=== PATIENT | female | born 1945 | race Caucasian/White ===

== ENCOUNTER 2022-07-07 12:10 | Inpatient (IN) | payer OTHER ==
[~2022-07-07] VITALS: Ht 162.6 cm; Wt 54.4 kg
[2022-07-07 12:45] LABS: MEAN CORPUSCULAR HEMOGLOBIN 23.8 uug (24.7-32.8); MEAN CORPUSCULAR VOLUME 74.7 fL (75.5-95.3); PLATELET COUNT (AUTO) 368 K/uL (179-408)
[2022-07-07 12:46] LABS: ABG BASE EXCESS -0.1 mmol/L; ABG HCO3 22.7 mmol/L; ABG PCO2 31.6 mmHg (35.0-45.0); ABG PH 7.474 (7.350-7.450); ABG PO2 48.2 mmHg (75.0-100.0); ABG SITE RIGHT RADIAL; ABG TOTAL HEMOGLOBIN 13.9 G/dL (12.0-16.0); COHb 0.5 % (0.5-1.5); MetHb 0.2 % (0.0-1.5); O2Hb 85.6 % (94.0-97.0)
[2022-07-07 12:52] LABS: CARBON DIOXIDE 29 mmol/L (21-32); CHLORIDE 101 mmol/L (98-107); CREATININE 0.9 mg/dL (0.6-1.3); GLUCOSE 161 mg/dL (74-106); POTASSIUM 4.1 mmol/L (3.5-5.1); UREA NITROGEN, BLOOD 22 mg/dL (7-18)
--- NOTE | 2022-07-07 13:34 | NUR ---
MD AT BEDSIDE FOR EVALUATION. ABGS DONE BY RT PER MD ORDER, MAINTAINED AT O2 MASK 8-10LPM.
[2022-07-07] MEDS ORDERED: ALBUTEROL SULFATE 2.5 MG/3 ML NEBU NEB ONE (13:45)
[2022-07-07] MEDS ORDERED: ALBUTEROL SULFATE 2.5 MG/3 ML NEBU ONE (13:46)
[2022-07-07] MEDS ORDERED: ALBU1.257 NEB (13:50)
[2022-07-07] MEDS ORDERED: ESCI10TA PO (13:50)
[2022-07-07] MEDS ORDERED: AMLO2.5T4 PO (13:50)
[2022-07-07] MEDS ORDERED: OSIM80TA PO (13:50)
[2022-07-07] MEDS ORDERED: ACET100V4 NEB (13:50)
[2022-07-07] MEDS ORDERED: IPRA0.2S48 NEB (13:50)
[2022-07-07] MEDS ORDERED: PROMETHAZINE-CODEINE PO (13:50)
[2022-07-07] MEDS ORDERED: PRED20TA PO (13:50)
[2022-07-07] MEDS ORDERED: FLUT16SP BNOSTRILS (13:50)
[2022-07-07] MEDS ORDERED: LEVO75TA7 PO (13:50)
[2022-07-07] MEDS ORDERED: APIX5TAB4 PO (13:50)
[2022-07-07] MEDS ORDERED: PANT40TA49 PO (13:50)
[2022-07-07] MEDS ORDERED: CEFEPIME HCL 2 G in IV DEXTROSE 5% 100 ML IV ONE (14:15)
[2022-07-07] MEDS ORDERED: IV NORMAL SALINE 500 ML BAG IV ONE (14:15)
--- NOTE | 2022-07-07 16:24 | NUR ---
Patient to go to room 314.
[2022-07-07] MEDS ORDERED: FAMO40TA7 PO (18:05)
[2022-07-07] MEDS ORDERED: PROMETHAZINE CODEINE PO SCH (19:00)
[2022-07-07] MEDS ORDERED: ACETAMINOPHEN 325 MG TABLET PO PRN (19:15)
[2022-07-07] MEDS ORDERED: MORPHINE SULFATE 2 MG/1 ML DISP.SYRIN IV PRN (19:15)
[2022-07-07] MEDS ORDERED: ONDANSETRON 4 MG/2 ML VIAL IV PRN (19:15)
--- NOTE | 2022-07-07 19:59 | NUR ---
Report given to DAVID Colvin
--- NOTE | 2022-07-07 20:25 | NUR ---
Admitted this 77 y/o female from ER via gurney, awake alert and oriented x 4. On O2 @ 5L/min via nc, SOB on exertion, HOB elevated to facilitate breathing. Left AC IV intact and patent. Denies chest pain. Sinus tachy on tele with HR of 101bpm. Routine admission care done, plan of care initiated. Needs assessed and attended to. Call light within easy reach.
[2022-07-07] MEDS ORDERED: GUAIFENESIN/CODEINE 5 ML LIQUID UDC PO PRN ×2 (20:30→21:00)
[2022-07-07 21:30] VITALS: BP 106/72
[2022-07-07] MEDS: AZITHROMYCIN IV 500 MG in IV DEXTROSE 5% 250 ML IV SCH (21:39)
[2022-07-07] MEDS: DOCUSATE SODIUM 100 MG CAPSULE PO SCH (21:40)
[2022-07-07] MEDS ORDERED: CEFTRIAXONE 1 G in IV DEXTROSE 5% 50 ML IV SCH (22:00)
[2022-07-07 22:43] LABS: *BILIRUBIN,URIN NEGATIVE (NEGATIVE); *BLOOD, URINE 1+ (NEGATIVE); *CLARITY,URINE SLIGHTLY CLOUDY (CLEAR); *COLOR,URINE YELLOW (YELLOW); *KETONES,URINE 1+ (NEGATIVE); *UROBILINOGEN,URINE 0.2 E.U./dl (NORMAL); LEUKOCYTE ESTERASE ,URINE 3+ (NEGATIVE); NITRITE, URINE POSITIVE (NEGATIVE); UGLUCOSE NEGATIVE (NEGATIVE)
[2022-07-07 23:19] LABS: BACTERIA,URINE MODERATE /HPF (NONE SEEN); SQUAMOUS EPITHELIAL CELL,UR FEW /HPF (NONE SEEN)
[2022-07-07 23:20] LABS: WBC,URINE TNTC /HPF (0-3)
[2022-07-08 00:39] VITALS: BP 100/71
[2022-07-08 04:52] VITALS: BP 93/62
[2022-07-08] MEDS: LEVOTHYROXINE SODIUM 75 MCG TABLET PO SCH (06:10)
[2022-07-08] MEDS: PANTOPRAZOLE SODIUM 40 MG TABLET.DR PO SCH ×2 (06:10→16:42)
[2022-07-08 07:13] LABS: BILIRUBIN,TOTAL 0.3 mg/dL (0.2-1.0); CREATININE 0.7 mg/dL (0.6-1.3); MAGNESIUM 1.8 mg/dL (1.8-2.4); PHOSPHOROUS 4.1 mg/dL (2.5-4.9); TOTAL PROTEIN, SERUM 6.6 g/dL (6.4-8.2)
[2022-07-08 07:17] LABS: THYROID STIMULATING HORMONE 1.131 mIU/mL (0.358-3.740)
[2022-07-08 08:11] LABS: HEMATOCRIT 35.3 % (31.2-41.9); MEAN CORPUSCULAR HEMOGLOBIN 23.6 uug (24.7-32.8); MEAN CORPUSCULAR VOLUME 74.4 fL (75.5-95.3); PLATELET COUNT (AUTO) 298 K/uL (179-408)
[2022-07-08] MEDS ORDERED: OSIMERTINIB MESYLATE 80 MG PO SCH (09:00)
[2022-07-08] MEDS: ESCITALOPRAM OXALATE 10 MG TABLET PO SCH (09:35)
[2022-07-08] MEDS: methylPREDNISolone SOD SUCC 40 MG/ML VIAL IV SCH ×2 (11:03→23:13)
[2022-07-08 11:34] VITALS: BP 104/73
[2022-07-08] MEDS ORDERED: SUCR1TAB PO (13:16)
[2022-07-08] MEDS ORDERED: OLAN5TAB70 PO (13:16)
[2022-07-08 16:39] VITALS: BP 99/67
[2022-07-08] MEDS: SUCRALFATE 1 G TABLET PO SCH ×2 (16:42→20:48)
[2022-07-08] MEDS: PIPERACILLIN SODIUM/TAZOBACTAM 3.375 G in IV DEXTROSE 5% 100 ML IV SCH (17:02)
[2022-07-08] MEDS ORDERED: PIPERACILLIN SODIUM/TAZOBACTAM 3.375 G in IV DEXTROSE 5% 50 ML IV SCH (18:00)
[2022-07-08] MEDS ORDERED: REMEDY ESSENTIAL ZINC PASTE 113 GM TOP PRN (18:30)
[2022-07-08] MEDS: OLANZAPINE 2.5 MG TABLET PO SCH (20:48)
[2022-07-08] MEDS: DOCUSATE SODIUM 100 MG CAPSULE PO SCH (20:48)
[2022-07-08] MEDS: AZITHROMYCIN IV 500 MG in IV DEXTROSE 5% 250 ML IV SCH (20:48)
[2022-07-08] MEDS: APIXABAN 5 MG TABLET PO SCH (20:55)
[2022-07-08 21:08] VITALS: BP 102/71
[2022-07-09 00:14] VITALS: BP 95/53
[2022-07-09] MEDS: PIPERACILLIN SODIUM/TAZOBACTAM 3.375 G in IV DEXTROSE 5% 100 ML IV SCH ×3 (02:01→16:08)
--- NOTE | 2022-07-09 05:58 | NUR ---
Slept well during the night, easy to arouse alert and able to relate needs to staff. In no acute distress, denies SOB but unable to lay flat in bed. HOB elevated to patient's comfort. Needs assessed and attended to. Call light within reach.
[2022-07-09] MEDS: PANTOPRAZOLE SODIUM 40 MG TABLET.DR PO SCH ×2 (06:16→16:04)
[2022-07-09] MEDS: methylPREDNISolone SOD SUCC 40 MG/ML VIAL IV SCH ×3 (06:16→21:36)
[2022-07-09] MEDS: LEVOTHYROXINE SODIUM 75 MCG TABLET PO SCH (06:16)
[2022-07-09 07:34] LABS: CREATININE 0.8 mg/dL (0.6-1.3); PHOSPHOROUS 3.9 mg/dL (2.5-4.9); POTASSIUM 3.8 mmol/L (3.5-5.1)
[2022-07-09 07:37] LABS: HEMATOCRIT 35.3 % (31.2-41.9); MEAN CORPUSCULAR HEMOGLOBIN 24.2 uug (24.7-32.8); MEAN CORPUSCULAR VOLUME 74.4 fL (75.5-95.3); PLATELET COUNT (AUTO) 322 K/uL (179-408)
[2022-07-09] MEDS: ESCITALOPRAM OXALATE 10 MG TABLET PO SCH (08:05)
[2022-07-09] MEDS: SUCRALFATE 1 G TABLET PO SCH ×4 (08:05→21:13)
[2022-07-09] MEDS: APIXABAN 5 MG TABLET PO SCH ×2 (08:05→21:16)
[2022-07-09 08:54] LABS: NEUTROPHILS % (MANUAL) 0 % (42-75)
[2022-07-09] MEDS: CLOTRIMAZOLE/BETAMET DIPROP CREAM 15 GM TUBE TOP SCH ×2 (09:48→21:36)
[2022-07-09 11:36] VITALS: BP 109/69
[2022-07-09 11:42] VITALS: BP 109/69
[2022-07-09 17:10] VITALS: BP 98/58
[2022-07-09] MEDS: [UNRECOGNIZED DRUG - OTHER] PO SCH (18:45)
[2022-07-09 20:18] VITALS: BP 104/62
[2022-07-09] MEDS: OLANZAPINE 2.5 MG TABLET PO SCH (21:13)
[2022-07-09] MEDS: DOCUSATE SODIUM 100 MG CAPSULE PO SCH (21:16)
[2022-07-09] MEDS: AZITHROMYCIN IV 500 MG in IV DEXTROSE 5% 250 ML IV SCH (21:35)
[2022-07-10 00:12] VITALS: BP 110/62
[2022-07-10] MEDS: PIPERACILLIN SODIUM/TAZOBACTAM 3.375 G in IV DEXTROSE 5% 100 ML IV SCH ×3 (01:10→16:19)
[2022-07-10 04:18] VITALS: BP 116/67
[2022-07-10] MEDS: methylPREDNISolone SOD SUCC 40 MG/ML VIAL IV SCH ×3 (05:54→22:12)
[2022-07-10] MEDS: PANTOPRAZOLE SODIUM 40 MG TABLET.DR PO SCH ×2 (06:17→16:15)
[2022-07-10] MEDS: LEVOTHYROXINE SODIUM 75 MCG TABLET PO SCH (06:17)
--- NOTE | 2022-07-10 07:08 | NUR ---
Slept well throughout the night, denies chest pain. No noted respiratory distress, no cough or congestion. HOB elevated to patient's comfort. Needs attended. Call light within easy reach.
[2022-07-10] MEDS: [UNRECOGNIZED DRUG - OTHER] PO SCH (08:09)
[2022-07-10] MEDS: SUCRALFATE 1 G TABLET PO SCH ×4 (08:09→20:39)
[2022-07-10] MEDS: ESCITALOPRAM OXALATE 10 MG TABLET PO SCH (08:09)
[2022-07-10] MEDS: APIXABAN 5 MG TABLET PO SCH ×2 (08:10→20:40)
[2022-07-10] MEDS: CLOTRIMAZOLE/BETAMET DIPROP CREAM 15 GM TUBE TOP SCH ×2 (08:25→21:37)
[2022-07-10 11:31] VITALS: BP 98/59
[2022-07-10] MEDS ORDERED: IV NORMAL SALINE 250 ML IV ONE (13:40)
[2022-07-10] MEDS ORDERED: SWABABLE VALVE TRANSFER SET EA MC ONE (13:40)
[2022-07-10] MEDS ORDERED: IOHEXOL 350 100 ML INFUS..BTL ONE (13:40)
[2022-07-10] MEDS ORDERED: SOD FERRIC GLUC COMPLX/SUCROSE 125 MG in IV NORMAL SALINE 100 ML IV SCH (14:00)
[2022-07-10] MEDS: GLUCERNA SHAKE 237 ML CAN PO SCH (16:15)
[2022-07-10 16:39] VITALS: BP 113/72
[2022-07-10] MEDS: DOCUSATE SODIUM 100 MG CAPSULE PO SCH (20:39)
[2022-07-10] MEDS: OLANZAPINE 2.5 MG TABLET PO SCH (20:40)
[2022-07-10] MEDS: AZITHROMYCIN IV 500 MG in IV DEXTROSE 5% 250 ML IV SCH (20:40)
[2022-07-10 21:20] VITALS: BP 106/58
[2022-07-11] MEDS: PIPERACILLIN SODIUM/TAZOBACTAM 3.375 G in IV DEXTROSE 5% 100 ML IV SCH ×3 (01:04→16:36)
[2022-07-11 04:00] VITALS: BP 117/70
[2022-07-11] MEDS: methylPREDNISolone SOD SUCC 40 MG/ML VIAL IV SCH ×3 (06:09→22:02)
[2022-07-11] MEDS: PANTOPRAZOLE SODIUM 40 MG TABLET.DR PO SCH ×2 (06:17→16:36)
[2022-07-11] MEDS: LEVOTHYROXINE SODIUM 75 MCG TABLET PO SCH (06:17)
--- NOTE | 2022-07-11 07:59 | NUR ---
Slept well, denies any chest pain, no SOB, no noted resp distress. All due meds given. Needs attended. Call light within easy reach.
--- NOTE | 2022-07-11 08:30 | NUR ---
RECEIVED PATIENT IN BED AWAKE ALERT AND ORIENTED DENIES PAIN OR DISCOMFORTS AT THIS TIME.REMAIN ON O2 AT 3L/M BY NASAL CANULA WITH NO S/S OF SHORTNESS OF BREATH.FEEDING SELF WITH GOOD APPETITE REMAIN ON ATB ORDERED WITH NO ADVERSE OR ALLERGIC REACTIONS AT THIS TIME. CALL LIGHT AND PERSONAL BELONGINGS ARE WITHIN EASY REACH WILL CONTINUE TO OBSERVE.
[2022-07-11] MEDS: SUCRALFATE 1 G TABLET PO SCH ×4 (08:35→20:30)
[2022-07-11] MEDS: ESCITALOPRAM OXALATE 10 MG TABLET PO SCH (08:35)
[2022-07-11] MEDS: APIXABAN 5 MG TABLET PO SCH ×2 (08:36→20:31)
[2022-07-11] MEDS: [UNRECOGNIZED DRUG - OTHER] PO SCH (08:37)
[2022-07-11] MEDS: GLUCERNA SHAKE 237 ML CAN PO SCH ×2 (08:37→16:36)
[2022-07-11] MEDS: CLOTRIMAZOLE/BETAMET DIPROP CREAM 15 GM TUBE TOP SCH ×2 (08:38→22:02)
[2022-07-11 11:12] VITALS: BP 116/66
--- NOTE | 2022-07-11 12:05 | NUR ---
AT THE CONCLUSION OF HER PHYSICAL THERAPY PER THE THERAPIST O2 SAT WAS LOW SO THE O2 FLOW WAS INCREASED TO 5L/M AND IS SATING AT 93 PERCENT WILL OBSERVE.
[2022-07-11 15:02] VITALS: BP 115/67
[2022-07-11 15:15] VITALS: BP 115/67
--- NOTE | 2022-07-11 17:35 | NUR ---
IV SITE LEFT WRIST INFILTERATED RESTARTED TO HER RIGHT FOREARM WITH GAUGE 20 WITH ONE ATTEMPT AND CONTINUED WITH IV ATB ORDERED.
--- NOTE | 2022-07-11 18:00 | NUR ---
O2 IS CURRENTLY AT 5L/M BY NASAL CANULA PATIENT STATED THAT HER O2 AT HOME IS 5L SAT IS AT 96-98 PERCENT WANTS O2 AT THIS RATE WILL OBSERVE.NO SOB AT THIS TIME.
--- NOTE | 2022-07-11 19:30 | NUR ---
Received pt awake, alert and orientedx4. PT in no acute distress.Iv intact. Safety and comfort provided. Will continue to monitor.
[2022-07-11 20:24] VITALS: BP 136/86
[2022-07-11] MEDS: AZITHROMYCIN IV 500 MG in IV DEXTROSE 5% 250 ML IV SCH (20:30)
[2022-07-11] MEDS: OLANZAPINE 2.5 MG TABLET PO SCH (20:30)
[2022-07-11] MEDS: DOCUSATE SODIUM 100 MG CAPSULE PO SCH (20:38)
--- NOTE | 2022-07-11 20:45 | NUR ---
Pt refused Colace medication as per pt she didn't need it.
[2022-07-12] MEDS: PIPERACILLIN SODIUM/TAZOBACTAM 3.375 G in IV DEXTROSE 5% 100 ML IV SCH ×3 (01:38→16:41)
[2022-07-12 04:38] VITALS: BP 113/71
[2022-07-12] MEDS: methylPREDNISolone SOD SUCC 40 MG/ML VIAL IV SCH ×3 (05:52→21:22)
[2022-07-12] MEDS: LEVOTHYROXINE SODIUM 75 MCG TABLET PO SCH (06:10)
[2022-07-12] MEDS: PANTOPRAZOLE SODIUM 40 MG TABLET.DR PO SCH ×2 (06:10→16:41)
--- NOTE | 2022-07-12 06:27 | NUR ---
Pt in no acute distress. Prescribed medication given and pt tolerated it well. Iv intact. Safety and comfort provided. All needs are met. Vital sign stable. Pt on 5l nasal cannula. Will endorse to incoming nurse for continuity of care.
[2022-07-12 06:42] LABS: HEMATOCRIT 34.1 % (31.2-41.9); MEAN CORPUSCULAR HEMOGLOBIN 23.8 uug (24.7-32.8); MEAN CORPUSCULAR VOLUME 73.5 fL (75.5-95.3); PLATELET COUNT (AUTO) 262 K/uL (179-408)
[2022-07-12 06:54] LABS: BILIRUBIN,TOTAL 0.3 mg/dL (0.2-1.0); CREATININE 0.9 mg/dL (0.6-1.3); MAGNESIUM 2.1 mg/dL (1.8-2.4); PHOSPHOROUS 2.7 mg/dL (2.5-4.9); POTASSIUM 3.8 mmol/L (3.5-5.1); TOTAL PROTEIN, SERUM 5.8 g/dL (6.4-8.2)
[2022-07-12] MEDS: GLUCERNA SHAKE 237 ML CAN PO SCH ×2 (08:07→16:41)
--- NOTE | 2022-07-12 09:00 | NUR ---
AWAKE ALERT AND ORIENTED ASSISTED TO AND FROM THE BATHROOM AND VOIDED WELL REMAIN ON O2 AT 5L/M GETS EASILY EXERTED ESPECIALLY WHEN SHE WALKS TO THE BATHROOM REMAIN ON ATB ORDERED WITH NO S/S OF INFILTERATION ON SITE CALL LIGHT AND PERSONAL BELONGINGS ARE WITHIN EASY REACH WILL CONTINUE TO OBSERVE.
[2022-07-12] MEDS: ESCITALOPRAM OXALATE 10 MG TABLET PO SCH (09:27)
[2022-07-12] MEDS: [UNRECOGNIZED DRUG - OTHER] PO SCH (09:27)
[2022-07-12] MEDS: SUCRALFATE 1 G TABLET PO SCH ×4 (09:27→20:25)
[2022-07-12] MEDS: APIXABAN 5 MG TABLET PO SCH ×2 (09:28→20:26)
[2022-07-12] MEDS: CLOTRIMAZOLE/BETAMET DIPROP CREAM 15 GM TUBE TOP SCH ×2 (09:29→20:32)
[2022-07-12 12:00] VITALS: BP 111/68
[2022-07-12 16:00] VITALS: BP 117/69
--- NOTE | 2022-07-12 18:00 | NUR ---
D/C PLANNING STILL WAITING FOR INSURANCE AUTH PER THE [employer] PATIENT AWARE REMAIN ON O2 AT 5L/M WITH NO SOB RESP SOMEWHAT HIGH AT 26 BUT HAS BEEN WALKING TO AND FROM THE BATHROOM AND GETS EASILY EXERTED PATIENT STATED FEELS OKAY WILL CONTINUE TO OBSERVE.
[2022-07-12] MEDS: ALBUTEROL SULFATE 2.5 MG/ 0.5 ML NEBU NEB PRN (19:47)
[2022-07-12] MEDS: IPRATROPIUM BROMIDE 0.5 MG/2.5 ML NEBU NEB PRN (19:47)
[2022-07-12 20:00] VITALS: BP 114/63
[2022-07-12] MEDS: DOCUSATE SODIUM 100 MG CAPSULE PO SCH (20:25)
[2022-07-12] MEDS: OLANZAPINE 2.5 MG TABLET PO SCH (20:25)
[2022-07-13] MEDS: PIPERACILLIN SODIUM/TAZOBACTAM 3.375 G in IV DEXTROSE 5% 100 ML IV SCH ×2 (00:52→08:33)
[2022-07-13] MEDS: ALBUTEROL SULFATE 2.5 MG/ 0.5 ML NEBU NEB PRN (01:05)
[2022-07-13] MEDS: IPRATROPIUM BROMIDE 0.5 MG/2.5 ML NEBU NEB PRN (01:05)
[2022-07-13 04:24] VITALS: BP 98/44
--- NOTE | 2022-07-13 05:02 | NUR ---
AAOx4 Admoitted for pneumonia. VSS. On continous O2 @ 5L via nasal cannula. IV ABT given as scheduled. No acute distress noted. Will monitor patient. Siderails up for safety. No complaints presented during shift. VSS.
[2022-07-13] MEDS: methylPREDNISolone SOD SUCC 40 MG/ML VIAL IV SCH ×2 (05:54→13:16)
[2022-07-13] MEDS: PANTOPRAZOLE SODIUM 40 MG TABLET.DR PO SCH (06:01)
[2022-07-13] MEDS: LEVOTHYROXINE SODIUM 75 MCG TABLET PO SCH (06:01)
[2022-07-13 06:48] LABS: HEMATOCRIT 31.8 % (31.2-41.9); MEAN CORPUSCULAR HEMOGLOBIN 24.1 uug (24.7-32.8); MEAN CORPUSCULAR VOLUME 73.6 fL (75.5-95.3); PLATELET COUNT (AUTO) 242 K/uL (179-408)
[2022-07-13 07:07] LABS: CREATININE 0.8 mg/dL (0.6-1.3); MAGNESIUM 1.9 mg/dL (1.8-2.4); PHOSPHOROUS 2.9 mg/dL (2.5-4.9)
--- NOTE | 2022-07-13 08:00 | NUR ---
awake alert and oriented, denies of pain, states feeling better, assisted to BR with walker with 02@5L/nc- tolerated well, explaiined plan of care, verbalized understanding, safety measures maintained, call light within reach
[2022-07-13] MEDS: GLUCERNA SHAKE 237 ML CAN PO SCH (08:32)
[2022-07-13] MEDS: SUCRALFATE 1 G TABLET PO SCH ×2 (08:33→13:16)
[2022-07-13] MEDS: ESCITALOPRAM OXALATE 10 MG TABLET PO SCH (08:33)
[2022-07-13] MEDS: CLOTRIMAZOLE/BETAMET DIPROP CREAM 15 GM TUBE TOP SCH (08:34)
[2022-07-13] MEDS: APIXABAN 5 MG TABLET PO SCH (08:34)
[2022-07-13] MEDS: [UNRECOGNIZED DRUG - OTHER] PO SCH (08:34)
--- NOTE | 2022-07-13 10:00 | NUR ---
seen by Dr Sena Angela- d/c plan to snf
[2022-07-13 11:00] VITALS: BP 104/54
--- NOTE | 2022-07-13 12:00 | NUR ---
pt is going to [facility] per CM- pt informed and agreed,
--- NOTE | 2022-07-13 13:45 | NUR ---
discharge instructions given, verbalized understanding, saline lock on right forearm in place and intact, no swelling/redness noted on site, report given to Gillian at [facility].
[2022-07-13 16:00] VITALS: BP 126/70
--- NOTE | 2022-07-13 16:10 | NUR ---
ambulance here, daughter at bedside, taken per manjit in stable condition with all belongings
== END 2022-07-13 16:10 | DRG 871 ==
LOC: ER 12:10 → TELE3 20:01 → MEDSURG3 07-10 10:39
PROVIDERS: ADMIT Internal Medicine
DX: A41.9 Sepsis, unspecified organism (principal); J18.9 Pneumonia, unspecified organism; J96.01 Acute respiratory failure with hypoxia; N39.0 Urinary tract infection, site not specified; J44.0 Chronic obstructive pulmonary disease with (acute) lower respiratory infection; B37.49 Other urogenital candidiasis; E03.9 Hypothyroidism, unspecified; E61.1 Iron deficiency; F32.A Depression, unspecified; F41.9 Anxiety disorder, unspecified; G47.00 Insomnia, unspecified; Z86.711 Personal history of pulmonary embolism; Z92.21 Personal history of antineoplastic chemotherapy; R53.1 Weakness; Z85.118 Personal history of other malignant neoplasm of bronchus and lung; Z79.01 Long term (current) use of anticoagulants; B95.2 Enterococcus as the cause of diseases classified elsewhere; R93.1 Abnormal findings on diagnostic imaging of heart and coronary circulation; Z20.822 Contact with and (suspected) exposure to COVID-19; E09.9 Drug or chemical induced diabetes mellitus without complications; T38.0X5A Adverse effect of glucocorticoids and synthetic analogues, initial encounter; Y92.89 Other specified places as the place of occurrence of the external cause
CPT/HCPCS: 36415; 36600; 70030-TC; 71045; 71275; 83550; 83605; 83735; 84100; 84443; 84484; 85025; 85610; 87040; 87077; 87086; 93005; 93307; 94640; 94664; 97161; A4663; G0378; J0456; J0692; J0696; J2543; J2916; J2920; J3590; J7040; J7050; Q9967